=== PATIENT | male | born 1995 | race Caucasian/White ===

== ENCOUNTER 2018-08-22 11:33 | Inpatient (IN) | payer OTHER ==
[~2018-08-22] VITALS: Ht 167.6 cm; Wt 89.9 kg
[2018-08-22] MEDS ORDERED: SODIUM CHLORIDE 0.9% 1,000 ML IV ONE ×2 (11:51→12:14)
[2018-08-22] MEDS ORDERED: ASPIRIN 81MG TABLET PO ONE (12:15)
[2018-08-22] MEDS ORDERED: LORAZEPAM 1MG TABLET PO ONE (12:15)
[2018-08-22 12:28] LABS: BASOPHILS % 0.3 % (0.0-2.0); CHLORIDE 103 mEq/L (98-107); EOSINOPHILS % 0.4 % (0.0-5.0); HEMATOCRIT. 46.6 % (42.0-52.0); HEMOGLOBIN. 15.9 g/dL (14.0-18.0); LYMPHOCYTES % 11.8 % (20.0-50.0); MEAN CORPUSCULAR HEMOGLOBIN 29.6 pg (28.0-32.0); MEAN CORPUSCULAR VOLUME 87.2 fL (80.0-94.0); MEAN PLATELET VOLUME 6.9 fl (7.4-10.4); MONOCYTES % 8.1 % (2.0-8.0); NEUTROPHILS % 79.4 % (40.0-76.0); PLATELET 370 x1000/uL (130-400); RED BLOOD CELL COUNT 5.35 mill/uL (4.7-6.1); RED CELL DISTRIBUTION WIDTH 13.2 % (11.6-14.6)
[2018-08-22 12:31] LABS: ETHANOL BLOOD < 10 mg/dL
[2018-08-22] MEDS ORDERED: CLONIDINE 0.1MG TABLET PO PRN ×2 (12:45→14:00)
[2018-08-22] MEDS ORDERED: ACETAMINOPHEN 325MG TABLET PO PRN (14:00)
[2018-08-22] MEDS ORDERED: LORAZEPAM 2MG/ML CPJ IV PRN (14:00)
[2018-08-22] MEDS ORDERED: DOCUSATE SODIUM 100MG CAPSULE PO PRN (14:00)
[2018-08-22] MEDS ORDERED: HYDROCODONE/ACETAMINOPHEN 5/325MG TABLET PO PRN (14:00)
[2018-08-22] MEDS ORDERED: ONDANSETRON HCL 4MG/2ML INJ IV PRN (14:00)
[2018-08-22] MEDS ORDERED: GUAIFENESIN 200MG/10ML SUGAR FREE UDC PO PRN (14:00)
[2018-08-22 14:45] VITALS: BP 127/77
[2018-08-22 16:00] VITALS: BP 124/69
[2018-08-22 20:00] VITALS: BP 110/67
[2018-08-23] VITALS: BP 116/71
[2018-08-23 04:00] VITALS: BP 121/75
[2018-08-23 06:21] LABS: BASOPHILS % 0.6 % (0.0-2.0); EOSINOPHILS % 1.6 % (0.0-5.0); HEMATOCRIT. 44.8 % (42.0-52.0); HEMOGLOBIN. 15.1 g/dL (14.0-18.0); LYMPHOCYTES % 21.3 % (20.0-50.0); MEAN CORPUSCULAR HEMOGLOBIN 29.8 pg (28.0-32.0); MEAN CORPUSCULAR VOLUME 88.4 fL (80.0-94.0); MONOCYTES % 10.4 % (2.0-8.0); NEUTROPHILS % 66.1 % (40.0-76.0); PLATELET 308 x1000/uL (130-400); RED BLOOD CELL COUNT 5.07 mill/uL (4.7-6.1); RED CELL DISTRIBUTION WIDTH 13.5 % (11.6-14.6)
[2018-08-23 06:38] LABS: CHLORIDE 103 mEq/L (98-107)
[2018-08-23 06:46] LABS: CREATINE KINASE MB FRACTION 1.7 ng/mL (0.5-3.6)
[2018-08-23 06:50] LABS: LDL CHOLESTEROL 106 mg/dL (5-100)
[2018-08-23 06:51] LABS: HDL CHOLESTEROL 39 mg/dL (40-59)
[2018-08-23 07:12] LABS: CREATINE KINASE 4191 IU/L (39-308)
[2018-08-23 08:00] VITALS: BP 128/72
[2018-08-23 12:00] VITALS: BP 118/67
[2018-08-23 16:00] VITALS: BP 114/79
[2018-08-23 17:12] LABS: *BARBITURATES SCREEN URINE NEGATIVE (NEGATIVE)
[2018-08-23 17:13] LABS: *AMPHETAMINES SCREEN URINE NEGATIVE (NEGATIVE); *BENZODIAZEPINES SCREEN URINE NEGATIVE (NEGATIVE); *COCAINE SCREEN URINE NEGATIVE (NEGATIVE); METHADONE URINE SCREEN NEGATIVE (NEGATIVE); OPIATES URINE SCREEN NEGATIVE (NEGATIVE); PHENCYCLIDINE URINE SCREEN NEGATIVE (NEGATIVE)
[2018-08-23 17:14] LABS: CANNABINOID URINE SCREEN NEGATIVE (NEGATIVE)
[2018-08-23 20:00] VITALS: BP 111/57
[2018-08-24] VITALS: BP 117/62
[2018-08-24 04:00] VITALS: BP 115/60
[2018-08-24 08:00] VITALS: BP 112/52
[2018-08-24] MEDS ORDERED: ATOR10TA PO (10:07)
[2018-08-24 10:10] VITALS: BP 112/52
[2018-08-24] MEDS ORDERED: ATORVASTATIN CALCIUM 10MG TABLET PO SCH (21:00)
== END 2018-08-24 11:00 | disposition home or self-care (01) | DRG 206 ==
LOC: ER 11:33 → CANBEDREQ 12:39 → 8WST 12:41 → ENRESERV 13:05 → SUPCPDRO 13:55
PROVIDERS: ADMIT Hospitalist; ATTEND Hospitalist
DX: M94.0 Chondrocostal junction syndrome [Tietze] (principal); R00.2 Palpitations; F43.10 Post-traumatic stress disorder, unspecified; E66.9 Obesity, unspecified; Z68.32 Body mass index [BMI] 32.0-32.9, adult; R94.31 Abnormal electrocardiogram [ECG] [EKG]; D72.829 Elevated white blood cell count, unspecified; R74.0 Nonspecific elevation of levels of transaminase and lactic acid dehydrogenase [LDH]; E78.5 Hyperlipidemia, unspecified
CPT/HCPCS: 36415; 71045; 80048; 80053; 80061; 80305; 82550; 82553; 83735; 84443; 84484; 85025; 85379; 93005; 93306; 93350; 93970; 96360; 99285; G0482; J7030